=== PATIENT | male | born 1980 | race Hispanic/Latino ===

== ENCOUNTER 2021-10-10 21:24 | Emergency (ER) | payer BC ==
[~2021-10-10] VITALS: Ht 165.1 cm; Wt 86.2 kg
[2021-10-10 21:28] VITALS: BP 161/111
== END 2021-10-10 22:14 | disposition home or self-care (01) ==
LOC: EDH 21:24
DX: T18.9XXA Foreign body of alimentary tract, part unspecified, initial encounter (principal); I10 Essential (primary) hypertension; X58.XXXA Exposure to other specified factors, initial encounter; Y93.89 Activity, other specified; Y92.89 Other specified places as the place of occurrence of the external cause; Y99.8 Other external cause status
CPT/HCPCS: 71045; 74018